=== PATIENT | female | born 1965 | race Caucasian/White ===

== ENCOUNTER → 2018-06-29 | Outpatient (CLI) | payer BC ==
--- NOTE | 2018-06-29 12:32 | Diagnostic Imaging Report ---
TECHNIQUE: Magnetic resonance imaging of the RIGHT KNEE was performed WITHOUT injected contrast. HISTORY: The brain COMPARISON: None available. FINDINGS: LIGAMENTS AND TENDONS: ACL: Intact PCL: Intact Collateral ligaments: Intact Iliotibial band: Unremarkable Popliteal tendon: Intact Extensor mechanism: Intact JOINT: Menisci: Medial: Degenerative signal without tear involving the posterior horn Lateral: Free margin fraying of the body coronal image 20 Articular Cartilage: Medial Compartment: Partial thickness cartilage loss Lateral Compartment: Partial thickness cartilage loss Patellofemoral Compartment: Partial thickness cartilage loss Joint Fluid: Small joint effusion. Large Baez's cyst extending 11 cm in craniocaudal dimension. BONE: No focal or infiltrative bone marrow replacing abnormality. No acute fracture. SOFT TISSUES: Prepatellar edema. 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 Tricompartment partial-thickness cartilage loss, patellofemoral compartment predominant. Small joint effusion and large Baez's cyst. Signed by: Dr. Fantasma Farmer M.D. on 06/29/2018 12:29 PM
== END ==
LOC: MRI 09:40
PROVIDERS: ATTEND Specialist
DX: S83.203A Other tear of unspecified meniscus, current injury, right knee, initial encounter (principal)